=== PATIENT | female | born 1975 ===

== ENCOUNTER 2018-10-13 10:44 | Day surgery (SDC) | payer OTHER ==
[2018-10-13 11:00] VITALS: BMI 23.7
[2018-10-13] MEDS ORDERED: Lactated Ringer's 500 ML IV ONE (11:02)
[2018-10-13] MEDS ORDERED: Propofol 10 mg/ml Inj (20 ML) ONE ×2 (11:20→11:45)
[2018-10-13] MEDS ORDERED: Midazolam 2 MG/2 ML VIAL ONE (11:40)
[2018-10-13 12:08] VITALS: TEMP 97.4; O2SAT 100
[2018-10-13 12:12] VITALS: BP 110/66; PULSE 69; RESP 12
== END 2018-10-13 12:51 | disposition home or self-care (01) ==
LOC: H.ENDO 10:44
PROVIDERS: ATTEND Internal Medicine Gastroenterology
DX: D12.7 Benign neoplasm of rectosigmoid junction (principal); K64.0 First degree hemorrhoids; R10.30 Lower abdominal pain, unspecified; R19.7 Diarrhea, unspecified; D12.5 Benign neoplasm of sigmoid colon
CPT/HCPCS: 45380; 88305; J2001; J2250; J2405; J2704; J7120